=== PATIENT | male | born 1995 | race Two or more races ===

== ENCOUNTER 2025-03-27 20:36 | Emergency (ER) | payer OTHER ==
[~2025-03-27] VITALS: Ht 180.3 cm; Wt 72.6 kg
[2025-03-27] MEDS ORDERED: MORPHINE SULFATE 4 MG/ML CARTRIDGE IV ONE ×2 (20:45→22:30)
[2025-03-27] MEDS ORDERED: ONDANSETRON HCL 2 MG/ML VIAL IV ONE (21:30)
[2025-03-27] MEDS ORDERED: TAMSULOSIN HCL 0.4 MG CAP PO ONE ×2 (21:30→22:54)
[2025-03-27] MEDS ORDERED: 0.9 % SODIUM CHLORIDE 1,000 ML IV SCH (21:30)
[2025-03-27] MEDS ORDERED: FAMOTIDINE/PF 20 MG/2 ML VIAL IV ONE (21:30)
[2025-03-27 22:15] LABS: ERYTHROCYTE SEDIMENTATION RATE 9 mm/hr (0-15)
[2025-03-27 22:16] LABS: BASO % 0.5 % (0.1-1.2); EOS # 0.22 (0.04-0.54); EOS % 1.2 % (0.7-7.0); LYMPH # 1.64 (1.18-3.74); LYMPH % 9.0 % (19.3-53.1); MEAN PLATELET VOLUME 9.50 fl (9.4-12.4); MONO # 0.72 (0.24-0.82); MONO % 3.9 % (4.7-12.5); NEUT # 15.57 (1.56-6.13); NEUT % 85.0 % (34.0-71.1); RED CELL DISTRIBUTION WIDTH 12.9 % (11.6-14.4)
[2025-03-27 22:43] LABS: ALT/SGPT 51 U/L (12-78); AST/SGOT 17 U/L (15-37); BILIRUBIN TOTAL 0.19 mg/dL (0.3-1.2); BUN CREA RATIO 17 (7.0-25.0); CREATININE SERUM 1.02 mg/dL (0.70-1.30); GFR 86.96; GLOBULINA 3.4 G/DL (2.4-3.5); GLUCOSE FASTING 90 mg/dL (65-100); OSMOLALITY SERUM 280 MOSM/KG (275-295)
[2025-03-27] MEDS ORDERED: FAMOTIDINE/PF 20 MG/2 ML VIAL ONE (22:55)
[2025-03-27] MEDS ORDERED: ONDANSETRON HCL 2 MG/ML VIAL ONE (22:55)
[2025-03-27] MEDS ORDERED: CEFTRIAXONE SODIUM 2,000 MG VIAL IV ONE (23:00)
[2025-03-28] MEDS ORDERED: CEFTRIAXONE SODIUM 2,000 MG VIAL ONE (00:20)
[2025-03-28] MEDS ORDERED: DIPHENHYDRAMINE HCL 50 MG/ML VIAL 1ML IM STA (03:20)
[2025-03-28] MEDS ORDERED: KETOROLAC TROMETHAMINE 60 MG VIAL IM STA (03:21)
[2025-03-28] MEDS ORDERED: DIPHENHYDRAMINE HCL 50 MG/ML VIAL 1ML ONE (03:51)
[2025-03-28] MEDS ORDERED: KETOROLAC TROMETHAMINE 60 MG VIAL IM ONE (03:52)
[2025-03-28 03:59] LABS: URINE APPEARANCE Clear; URINE BILIRRUBIN Negative (NEGATIVE); URINE BLOOD Large; URINE COLOR Yellow; URINE GLUCOSE Negative (NEGATIVE); URINE KETONE Negative (NEGATIVE); URINE LEUKOCYTE Trace; URINE NITRATE Negative; URINE PROTEIN Negative (NEGATIVE); URINE UROBILINOGEN 0.2 E.U./dl
[2025-03-28 04:03] LABS: URINE RBC 200.1 uL (0.0-20.8); URINE WBC 2.1 uL (0.0-23.2)
[2025-03-28 04:15] LABS: URINE BACTERIA 3.5 uL (0.0-1933); URINE CAST 0.14 uL (0.0-1.40); URINE EPITHELIAL CELLS 0.7 uL (0.0-38.8)
[2025-03-28] MEDS ORDERED: MORPHINE SULFATE 4 MG/ML CARTRIDGE IV STA (08:24)
[2025-03-28] MEDS ORDERED: 0.9 % SODIUM CHLORIDE 1,000 ML IV STA (08:24)
[2025-03-28] MEDS ORDERED: TAMSULOSIN HCL 0.4 MG CAP PO STA (08:24)
[2025-03-28] MEDS ORDERED: TAMSULOSIN HCL 0.4 MG CAP PO ONE (09:19)
== END 2025-03-28 15:00 | disposition designated cancer center or children's hospital (05) ==
LOC: ER 20:36
PROVIDERS: Student in an Organized Health Care Education/Training Program
DX: N20.0 Calculus of kidney (principal); N13.30 Unspecified hydronephrosis; N23 Unspecified renal colic; N50.819 Testicular pain, unspecified